=== PATIENT | female | born 1935 ===

== ENCOUNTER → 2017-10-03 | Outpatient (CLI) | payer OTHER ==
[~2017-10-03] MED LIST: SIMVASTATIN40 MG PO
== END | disposition home or self-care (01) ==
LOC: LAB 07:29
DX: E03.8 Other specified hypothyroidism (principal); E78.2 Mixed hyperlipidemia; E11.65 Type 2 diabetes mellitus with hyperglycemia; D68.8 Other specified coagulation defects; D64.89 Other specified anemias; N39.0 Urinary tract infection, site not specified; R82.79 Other abnormal findings on microbiological examination of urine

== ENCOUNTER 2018-04-27 10:08 | Outpatient (CLI) | payer OTHER | END 2018-04-27 10:15 | disposition home or self-care (01) | LOC: LAB 10:08 | DX: E11.65 Type 2 diabetes mellitus with hyperglycemia (principal); D68.8 Other specified coagulation defects; D64.89 Other specified anemias; N39.0 Urinary tract infection, site not specified; E03.8 Other specified hypothyroidism ==

== ENCOUNTER → 2018-05-01 09:41 | Outpatient (CLI) | payer OTHER | END | disposition home or self-care (01) | LOC: LAB 09:41 | DX: N39.0 Urinary tract infection, site not specified (principal); R82.79 Other abnormal findings on microbiological examination of urine ==

== ENCOUNTER 2018-06-04 11:55 | Outpatient (CLI) | payer OTHER | END 2018-06-04 11:59 | disposition home or self-care (01) | LOC: LAB 11:55 | DX: N39.0 Urinary tract infection, site not specified (principal); Z51.81 Encounter for therapeutic drug level monitoring ==

== ENCOUNTER 2018-09-18 10:38 | Outpatient (CLI) | payer OTHER | END 2018-09-18 15:56 | disposition home or self-care (01) | LOC: SONOGRAMA 10:38 | DX: E04.1 Nontoxic single thyroid nodule (principal); E03.8 Other specified hypothyroidism ==

== ENCOUNTER 2018-09-18 10:40 | Outpatient (CLI) | payer OTHER | END 2018-09-18 10:55 | disposition home or self-care (01) | LOC: LAB 10:40 | DX: E11.65 Type 2 diabetes mellitus with hyperglycemia (principal); D64.89 Other specified anemias; E03.8 Other specified hypothyroidism; E78.2 Mixed hyperlipidemia; D68.8 Other specified coagulation defects; E11.21 Type 2 diabetes mellitus with diabetic nephropathy; Z12.11 Encounter for screening for malignant neoplasm of colon ==

== ENCOUNTER 2018-12-19 09:15 | Outpatient (CLI) | payer OTHER | END 2018-12-19 09:19 | disposition home or self-care (01) | LOC: LAB 09:15 | DX: D64.89 Other specified anemias (principal); E03.8 Other specified hypothyroidism; E78.2 Mixed hyperlipidemia; E11.65 Type 2 diabetes mellitus with hyperglycemia; N39.0 Urinary tract infection, site not specified ==

== ENCOUNTER 2019-03-27 09:20 | Outpatient (CLI) | payer OTHER | END 2019-03-27 09:33 | disposition home or self-care (01) | LOC: LAB 09:20 | DX: J45.998 Other asthma (principal); E03.8 Other specified hypothyroidism; E78.2 Mixed hyperlipidemia; E11.65 Type 2 diabetes mellitus with hyperglycemia; D64.89 Other specified anemias ==

== ENCOUNTER → 2019-06-27 08:07 | Outpatient (CLI) | payer OTHER | END | disposition home or self-care (01) | LOC: LAB 08:07 | DX: D64.89 Other specified anemias (principal); E03.8 Other specified hypothyroidism; E78.2 Mixed hyperlipidemia; E11.65 Type 2 diabetes mellitus with hyperglycemia; N39.0 Urinary tract infection, site not specified ==

== ENCOUNTER 2019-10-01 08:32 | Outpatient (CLI) | payer OTHER | END 2019-10-01 08:39 | disposition home or self-care (01) | LOC: LAB 08:32 | DX: E11.65 Type 2 diabetes mellitus with hyperglycemia (principal); E11.21 Type 2 diabetes mellitus with diabetic nephropathy; N39.0 Urinary tract infection, site not specified; E03.8 Other specified hypothyroidism; E78.2 Mixed hyperlipidemia; E11.51 Type 2 diabetes mellitus with diabetic peripheral angiopathy without gangrene ==

== ENCOUNTER → 2021-03-01 09:07 | Outpatient (CLI) | payer OTHER | END | disposition home or self-care (01) | LOC: LAB 09:07 | PROVIDERS: ATTEND Specialist | DX: E03.9 Hypothyroidism, unspecified (principal); E11.69 Type 2 diabetes mellitus with other specified complication; D64.9 Anemia, unspecified ==

== ENCOUNTER → 2021-03-01 | Outpatient (CLI) | payer OTHER | END | disposition home or self-care (01) | LOC: RAD 08:24 | PROVIDERS: ATTEND Specialist | DX: J45.998 Other asthma (principal) ==

== ENCOUNTER 2022-02-18 07:31 | Outpatient (CLI) | payer OTHER | END 2022-02-18 07:32 | disposition home or self-care (01) | LOC: LAB 07:31 | PROVIDERS: ATTEND Specialist | DX: E03.9 Hypothyroidism, unspecified (principal); E11.65 Type 2 diabetes mellitus with hyperglycemia; Z12.11 Encounter for screening for malignant neoplasm of colon ==

== ENCOUNTER → 2022-10-10 08:46 | Outpatient (CLI) | payer OTHER | END | disposition home or self-care (01) | LOC: LAB 08:46 | PROVIDERS: ATTEND Specialist | DX: E03.9 Hypothyroidism, unspecified (principal); E11.21 Type 2 diabetes mellitus with diabetic nephropathy; N39.9 Disorder of urinary system, unspecified; Z12.11 Encounter for screening for malignant neoplasm of colon; D64.9 Anemia, unspecified; E11.65 Type 2 diabetes mellitus with hyperglycemia; K75.81 Nonalcoholic steatohepatitis (NASH); D51.0 Vitamin B12 deficiency anemia due to intrinsic factor deficiency ==

== ENCOUNTER 2025-01-29 10:02 | Outpatient (CLI) | payer OTHER ==
[2025-01-29 10:51] LABS: BASO % 1.1 % (0.1-1.2); EOS # 0.31 (0.04-0.54); EOS % 5.7 % (0.7-7.0); HEMATOCRIT 37.8 % (34.1-44.9); HEMOGLOBIN 12.4 g/dL (11.2-15.7); LYMPH # 1.76 (1.18-3.74); LYMPH % 32.4 % (19.3-53.1); MEAN CORPUSCULAR HEMOGLOBIN 28.6 pg (25.6-32.2); MONO # 0.56 (0.24-0.82); MONO % 10.3 % (4.7-12.5); NEUT # 2.74 (1.56-6.13); NEUT % 50.3 % (34.0-71.1); PLATELET COUNT 303 K/uL (163-369); RED BLOOD COUNT 4.33 M/uL (3.93-5.22); RED CELL DISTRIBUTION WIDTH 14.3 % (11.6-14.4)
[2025-01-29 11:30] LABS: INR 1.01; PARTIAL THROMBOPLASTIN TIME 27.3 SECONDS (22.0-34.0)
[2025-01-29 11:53] LABS: ALBUMIN 3.9 gm/dL (3.4-5.0); BILIRUBIN TOTAL 0.47 mg/dL (0.3-1.2); CALCIUM 9.8 mg/dL (8.5-10.1); CHOL HDL RATIO 1.9 (0-5.0); CREATININE SERUM 0.76 mg/dL (0.55-1.02); GFR 71.82; GLOBULINA 3.2 G/DL (2.4-3.5); POTASSIUM 3.89 mEq/L (3.5-5.1); T4 FREE 1.25 NG/ML (0.76-1.46); TOTAL PROTEIN 7.1 gm/dL (6.4-8.2); TSH 2.31 uIU/mL (0.358-3.74)
[2025-01-29 15:14] LABS: FREE TRIODOTIRONINE 1.45 pg/ml (2.18-3.98)
== END 2025-01-29 10:09 | disposition home or self-care (01) ==
LOC: LAB 10:02
PROVIDERS: ATTEND Specialist
DX: E03.9 Hypothyroidism, unspecified (principal); E11.21 Type 2 diabetes mellitus with diabetic nephropathy; N39.9 Disorder of urinary system, unspecified; Z12.11 Encounter for screening for malignant neoplasm of colon; D64.9 Anemia, unspecified; E11.65 Type 2 diabetes mellitus with hyperglycemia; D68.8 Other specified coagulation defects; N25.81 Secondary hyperparathyroidism of renal origin; N39.0 Urinary tract infection, site not specified; E55.9 Vitamin D deficiency, unspecified

== ENCOUNTER 2025-08-13 08:02 | Outpatient (CLI) | payer OTHER ==
[2025-08-13 08:56] LABS: BASO % 1.4 % (0.1-1.2); EOS # 0.52 (0.04-0.54); EOS % 9.2 % (0.7-7.0); LYMPH # 1.78 (1.18-3.74); LYMPH % 31.6 % (19.3-53.1); MEAN PLATELET VOLUME 9.90 fl (9.4-12.4); MONO # 0.65 (0.24-0.82); MONO % 11.5 % (4.7-12.5); NEUT # 2.59 (1.56-6.13); NEUT % 45.9 % (34.0-71.1); RED CELL DISTRIBUTION WIDTH 13.7 % (11.6-14.4)
[2025-08-13 10:25] LABS: ALT/SGPT 17.0 U/L (12-78); AST/SGOT 12.0 U/L (15-37); BILIRUBIN TOTAL 0.38 mg/dL (0.3-1.2); BUN CREA RATIO 22.0 (7.0-25.0); CHOL HDL RATIO 1.8 (0-5.0); CREATININE SERUM 0.76 mg/dL (0.55-1.02); FREE TRIODOTIRONINE 2.54 pg/ml (2.18-3.98); GFR 71.66; GLOBULINA 3.2 G/DL (2.4-3.5); GLUCOSE FASTING 91.0 mg/dL (65-100); HDL 108.0 mg/dl (40-60); LDL 68.0 mg/dl (0-130); OSMOLALITY SERUM 284.0 MOSM/KG (275-295); T4 FREE 1.3 NG/ML (0.76-1.46); TSH 2.99 uIU/mL (0.358-3.74); VLDL 14.0 (0-39)
== END 2025-08-13 08:10 | disposition home or self-care (01) ==
LOC: LAB 08:02
PROVIDERS: ATTEND Specialist
DX: E03.9 Hypothyroidism, unspecified (principal); E11.21 Type 2 diabetes mellitus with diabetic nephropathy; N39.9 Disorder of urinary system, unspecified; E78.2 Mixed hyperlipidemia; E11.65 Type 2 diabetes mellitus with hyperglycemia; D64.9 Anemia, unspecified; E55.9 Vitamin D deficiency, unspecified